=== PATIENT | male | born 1955 | race Two or more races ===

== ENCOUNTER 2024-06-10 06:00 | Inpatient (IN) | payer BC ==
[2024-06-06 10:18] LABS: Urine Bacteria None Seen /hpf (None Seen)
[2024-06-06 10:28] LABS: Basophils # (auto) 0.1 10 ^3/uL (0-0.2); Basophils % (auto) 0.7 % (0.0-2.0); Eosinophils # (auto) 0.2 10 ^3/uL (0-0.8); Hematocrit 44.4 % (41.0-53.0); Hemoglobin 14.9 g/dL (13.5-17.5); Lymphocytes # (auto) 2.2 10 ^3/uL (0.4-5.4); Lymphocytes % (auto) 29.5 % (10.0-50.0); Mean Corpuscular Hemoglobin 29.9 pg (28.0-32.0); Mean Corpuscular Hgb Conc. 33.7 g/dL (32.0-36.0); Mean Corpuscular Volume 88.9 fL (80.0-100.0); Monocytes # (auto) 0.7 10 ^3/uL (0-1.3); Monocytes % (auto) 9.1 % (0.0-12.0); Neutrophils # (auto) 4.3 10 ^3/uL (1.6-8.6); Neutrophils % (auto) 57.7 % (37.0-80.0); Platelet Count (auto) 254 10^3/uL (140-450); Red Cell Distribution Width 13.7 % (11.8-14.3); White Blood Cell 7.5 10^3/uL (4.4-10.8)
[2024-06-06 10:47] LABS: INR 0.97 (0.9-1.15); Partial Thromboplastin Time 26.8 SEC (24.5-34.5); Prothrombin Time 10.3 sec (9.3-11.8)
[2024-06-06 11:05] LABS: Urine Blood Negative /uL (Negative); Urine Clarity Clear (Clear); Urine Color Light-Yellow (Yellow); Urine Protein, UAD Negative (Negative); Urine Specific Gravity 1.018 (1.001-1.035); Urine Urobilinogen Normal (Negative); Urine WBC 1 /hpf (0 - 3)
[2024-06-06 11:07] LABS: Alanine Aminotransferase 19 U/L (7-40); Albumin 4.8 g/dL (3.2-4.8); Alkaline Phosphatase 87 U/L (46-116); Anion Gap 7 (5-15); Aspartate Aminotransferase 17 U/L (13-40); BUN/Creatinine Ratio 16.7 (10.0-20.0); Blood Urea Nitrogen 20 mg/dL (9-23); Calcium 9.5 mg/dL (8.7-10.4); Carbon Dioxide 24 mmol/L (20-30); Chloride 109 mmol/L (98-107); Glucose 104 mg/dL (74-106); Potassium 4.1 mmol/L (3.5-5.1); Sodium 140 mmol/L (136-145)
[2024-06-06 11:08] LABS: Bilirubin, Total 0.4 mg/dL (0.2-1.0); Total Protein 7.6 g/dL (5.7-8.2)
[2024-06-10] VITALS (13 sets, daily range): BP systolic 99–163; BP diastolic 67–102; PULSE 53–86; RESP 18–20; TEMP 97.5–97.9; O2SAT 95–98
[~2024-06-10] VITALS: Ht 185.4 cm; Wt 121.5 kg
[~2024-06-10 06:00] MED LIST: BENA10TA90 PO; SIMV10TA20 PO; TOPI100T68 PO
[2024-06-10] MEDS: ROPIVACAINE 0.5% (5MG/ML) 20ML AMPULE IJ ONE (06:36)
[2024-06-10] MEDS: TRANEXAMIC ACID 20 ML ONE (06:36)
[2024-06-10] MEDS: ceFAZolin 2 GM/D5W50ml 50 ML IV ONE (06:47)
[2024-06-10] MEDS: SUCCINYLCHOLINE CHLORIDE 20 MG/ML 10ML VIAL IV ONE (06:59)
[2024-06-10] MEDS: TETRACAINE 1% INJ 2 ML VIAL IJ ONE (06:59)
[2024-06-10] MEDS ORDERED: EPINEPHrine HCL 1 MG/1 ML AMP ONE (07:03)
[2024-06-10] MEDS ORDERED: MORPHINE SULF PF 5 MG/10 ML VIAL ONE (07:03)
[2024-06-10] MEDS ORDERED: MIDAZOLAM HCL 2MG/2ML 2ml VIAL (1mg/ml) ONE (07:03)
[2024-06-10] MEDS ORDERED: fentaNYL CITRATE 100 MCG/2 ML VL ONE (07:03)
[2024-06-10] MEDS ORDERED: BUPIVACAINE/DEXTROSE MPF 0.75% 2 ML AMP IT ONE (07:03)
[2024-06-10] MEDS ORDERED: SODIUM CHLORIDE LOCK 10 ML ONE (07:03)
[2024-06-10] MEDS ORDERED: ONDANSETRON HCL 4 MG/2 ML VIAL ONE (07:03)
[2024-06-10] MEDS ORDERED: LIDOCAINE 1% INJ PF 5ML AMP ONE (07:03)
[2024-06-10] MEDS ORDERED: PROPOFOL 10 MG/ML 20 ML IV ONE (07:03)
[2024-06-10] MEDS ORDERED: NALOXONE HCL 0.4 MG/ML VIAL IV PRN (08:15)
[2024-06-10] MEDS: METOCLOPRAMIDE HCL 5MG/ml INJ 2ml VIAL IV ONE (08:15)
[2024-06-10] MEDS ORDERED: HYDROmorphone HCL 2 MG/ML VL/or syr IV PRN ×2 (08:15)
[2024-06-10] MEDS ORDERED: MORPHINE SULFATE INJ 2 MG/ml SYRG IV PRN (08:15)
[2024-06-10] MEDS: KETOROLAC TROMETH 30 MG/ML 1ML VIAL IV ONE (08:15)
[2024-06-10] MEDS ORDERED: diphenhdrAMINE HCL 50 MG/1 ML VL IV PRN (08:15)
[2024-06-10] MEDS ORDERED: fentaNYL CITRATE 100 MCG/2 ML VL IV PRN (08:15)
[2024-06-10] MEDS: EPINEPHrine HCL 1 MG/1 ML AMP ONE (08:37)
[2024-06-10] MEDS: VANCOMYCIN HCL 1000 MG VL ONE (08:39)
[2024-06-10] MEDS ORDERED: DexAMETHasone SOD PHOS 10MG/1ML VIAL INJ ONE (09:12)
[2024-06-10] MEDS ORDERED: ACETAMINOPHEN 325 MG TAB PO PRN (09:30)
[2024-06-10] MEDS ORDERED: oxyCODONE HCL 5MG TAB PO PRN ×2 (09:30)
[2024-06-10] MEDS: D5W/LACTATED RINGERS 1,000 ML IV SCH (09:45)
[2024-06-10] MEDS: SIMVASTATIN 10 MG PO SCH (10:00)
[2024-06-10] MEDS: ACETAMINOPHEN 325 MG TAB PO SCH (13:04)
[2024-06-10] MEDS: KETOROLAC TROMETH 30 MG/ML 1ML VIAL IV SCH (13:05)
[2024-06-10] MEDS: PREGABALIN 25 MG CAP PO SCH (13:32)
[2024-06-10] MEDS: BENAZEPRIL HCL 10 MG TAB PO SCH (13:33)
[2024-06-10] MEDS: TOPIRAMATE 100 MG TAB PO SCH (13:34)
[2024-06-10] MEDS: ceFAZolin 2 GM/D5W50ml 50 ML IV SCH (13:34)
[2024-06-10] MEDS: hydrALAZINE HCL 20 MG/ML VL IV PRN (19:40)
[2024-06-11] VITALS (12 sets, daily range): BP systolic 97–148; BP diastolic 52–80; PULSE 61–86; RESP 16–20; TEMP 97.6–98; O2SAT 97–99
[2024-06-11 07:09] LABS: Basophils # (auto) 0 10 ^3/uL (0-0.2); Basophils % (auto) 0.3 % (0.0-2.0); Eosinophils # (auto) 0.1 10 ^3/uL (0-0.8); Eosinophils % (auto) 0.8 % (0.0-7.0); Hematocrit 37.1 % (41.0-53.0); Hemoglobin 12.3 g/dL (13.5-17.5); Lymphocytes # (auto) 0.8 10 ^3/uL (0.4-5.4); Lymphocytes % (auto) 12.8 % (10.0-50.0); Mean Corpuscular Hemoglobin 30.3 pg (28.0-32.0); Mean Corpuscular Hgb Conc. 33.2 g/dL (32.0-36.0); Mean Corpuscular Volume 91.4 fL (80.0-100.0); Monocytes # (auto) 0.7 10 ^3/uL (0-1.3); Monocytes % (auto) 11.8 % (0.0-12.0); Neutrophils # (auto) 4.7 10 ^3/uL (1.6-8.6); Neutrophils % (auto) 74.3 % (37.0-80.0); Nucleated Red Blood Cells % 0.1 %; Platelet Count (auto) 229 10^3/uL (140-450); Red Blood Cells 4.06 10^6/uL (4.5-5.90); Red Cell Distribution Width 14.4 % (11.8-14.3); White Blood Cell 6.4 10^3/uL (4.4-10.8)
[2024-06-11 07:14] LABS: Alanine Aminotransferase 16 U/L (7-40); Albumin 3.7 g/dL (3.2-4.8); Alkaline Phosphatase 68 U/L (46-116); Anion Gap 8 (5-15); Aspartate Aminotransferase 18 U/L (13-40); BUN/Creatinine Ratio 14.9 (10.0-20.0); Blood Urea Nitrogen 24 mg/dL (9-23); Carbon Dioxide 23 mmol/L (20-30); Chloride 106 mmol/L (98-107); Glucose 135 mg/dL (74-106); Potassium 4.3 mmol/L (3.5-5.1); Sodium 137 mmol/L (136-145)
[2024-06-11 07:15] LABS: Bilirubin, Total 0.6 mg/dL (0.2-1.0); Total Protein 5.8 g/dL (5.7-8.2)
[2024-06-11] MEDS: ASPirin 81 mg TAB PO SCH (10:28)
[2024-06-12 01:00] VITALS: BP 154/70; PULSE 73; RESP 20; TEMP 97.9; O2SAT 98
[2024-06-12 05:00] VITALS: BP 168/66; PULSE 72; RESP 19; TEMP 98.2; O2SAT 100
[2024-06-12 07:12] LABS: Anion Gap 5 (5-15); Carbon Dioxide 26 mmol/L (20-30); Chloride 111 mmol/L (98-107); Sodium 142 mmol/L (136-145)
[2024-06-12 07:14] LABS: Calcium 9.1 mg/dL (8.7-10.4)
[2024-06-12 07:18] LABS: Glucose 129 mg/dL (74-106)
[2024-06-12 07:19] LABS: BUN/Creatinine Ratio 17.7 (10.0-20.0); Blood Urea Nitrogen 23 mg/dL (9-23)
[2024-06-12 08:59] VITALS: BP 177/85; PULSE 68; RESP 20; TEMP 98.1; O2SAT 100
[2024-06-12 12:38] VITALS: BP 148/69; PULSE 96; RESP 20; TEMP 98.5; O2SAT 100
[2024-06-12 16:56] VITALS: BP 145/73; PULSE 93; RESP 20; TEMP 98.5; O2SAT 98
== END 2024-06-12 17:21 | disposition home or self-care (01) | DRG 470 ==
LOC: SUR 06:00 → TELE 09:25 → TELE-WESTW 14:19 → WEST WING 06-11 16:40
PROVIDERS: ADMIT Orthopaedic Surgery; ATTEND Internal Medicine
PROC: 0SRC069 Replacement of Right Knee Joint with Oxidized Zirconium on Polyethylene Synthetic Substitute, Cemented, Open Approach (ICD-10-PCS; principal; 2024-06-10 07:20)
DX: M17.12 Unilateral primary osteoarthritis, left knee (principal); N17.9 Acute kidney failure, unspecified; E66.9 Obesity, unspecified; E78.5 Hyperlipidemia, unspecified; I10 Essential (primary) hypertension; R56.9 Unspecified convulsions; Z68.35 Body mass index [BMI] 35.0-35.9, adult; Z87.891 Personal history of nicotine dependence
CPT/HCPCS: 36415; 73562; 80048; 80053; 81001; 85025; 85610; 85730; 86850; 86900; 86901; 97110; 97116; 97163; 97530; G0378; J0171; J0330; J1100; J1885; J2250; J2405; J2704

== ENCOUNTER 2024-06-18 01:45 | Emergency (ER) | payer BC ==
[~2024-06-18] VITALS: Ht 185.4 cm; Wt 112.2 kg
[2024-06-18] MEDS: APIXABAN 5 MG TAB PO SCH (05:12)
[2024-06-18] MEDS ORDERED: APIX5TAB PO (05:15)
[2024-06-18 05:41] VITALS: BP 115/60; TEMP 98.6
[2024-06-18 05:42] VITALS: PULSE 82; RESP 16; O2SAT 99
[2024-06-25] MEDS ORDERED: APIXABAN 5 MG TAB PO SCH (10:00)
== END 2024-06-18 06:00 | disposition home or self-care (01) ==
LOC: ER 01:45
DX: I82.432 Acute embolism and thrombosis of left popliteal vein (principal); Z79.899 Other long term (current) drug therapy; Z98.890 Other specified postprocedural states
CPT/HCPCS: 73562; 93971